=== PATIENT | female | born 1995 | race Hispanic/Latino ===

== ENCOUNTER 2018-11-14 21:01 | Emergency (ER) | payer BC ==
[~2018-11-14] VITALS: Ht 162.6 cm; Wt 124.7 kg
[~2018-11-14 21:01] MED LIST: ADVAIR 250-501 EACH INH; ALBUTEROL SULF8.5 GM INH; BIRTH CONTROL PO; LEVAQUIN500 MG PO; ULTRAM50 MG PO; ZOFRAN ODT4 MG PO
[2018-11-14 23:02] LABS: BILIRUBIN,URINE NEGATIVE (NEGATIVE); CLARITY,URINE CLEAR (CLEAR); COLOR,URINE YELLOW (YELLOW); KETONES,URINE NEGATIVE (NEGATIVE); LEUKOCYTE ESTERASE ,URINE NEGATIVE (NEGATIVE); NITRITE,URINE NEGATIVE (NEGATIVE); PROTEIN,URINE DIPSTICK NEGATIVE (NEGATIVE); URINE UROBILINOGEN 0.2 mg/dL (0.2 - 1)
[2018-11-14 23:03] LABS: PREGNANCY TEST, URINE NEGATIVE (NEGATIVE)
[2018-11-14 23:06] LABS: BACTERIA,URINE RARE /HPF; EPITHELIAL CELLS,URINE MODERATE /LPF; RBC,URINE 0-5 /HPF (0-5); WBC,URINE (MAN) 0-5 /HPF (0-5)
[2018-11-15 00:32] VITALS: BP 128/89
== END 2018-11-15 01:11 | disposition home or self-care (01) ==
LOC: ER 21:01
DX: M54.5 Low back pain (principal); S39.012A Strain of muscle, fascia and tendon of lower back, initial encounter
CPT/HCPCS: 81001; 81025; 99283